=== PATIENT | female | born 1970 | race Caucasian/White ===

== ENCOUNTER 2017-06-19 12:52 | Inpatient (IN) | payer SELFPAY ==
[~2017-06-19] VITALS: Ht 162.6 cm; Wt 77.3 kg
[~2017-06-19 12:52] MED LIST: DICLEGIS DR 101 EACH PO; PRENATAL1 EACH PO; ZOFRAN4 MG PO
[2017-06-19 14:04] LABS: HEMATOCRIT 30.2 % (36.0-46.0); HEMOGLOBIN 8.7 G/DL (11.9-15.5); MCH 20.1 PG (29.0-34.0); MCHC 28.8 G/DL (30.0-36.0); MCV 69.7 FL (83-99); PLATELET COUNT 411 K/uL (156-360); RBC DIS.WIDTH-SD 47.2 % (39-53); RED BLOOD COUNT 4.33 M/uL (3.80-5.20); WHITE BLOOD COUNT 10.1 K/uL (4.1-10.2)
[2017-06-19 14:06] LABS: INTER. NORMALIZED RATIO 1.2
[2017-06-19 14:09] LABS: ALBUMIN 3.7 g/dL (3.2-4.8); CHLORIDE 108 mEq/L (99-109); PTT 27.1 SEC (25-37); SODIUM 139 mEq/L (136-147)
[2017-06-19 14:11] LABS: GLUCOSE 126 mg/dL (70-99)
[2017-06-19 14:12] LABS: TOTAL PROTEIN 6.9 g/dL (6.4-8.3)
[2017-06-19 14:13] LABS: TOTAL BILIRUBIN 0.1 mg/dL (0.0-1.0)
[2017-06-19 14:15] LABS: ALKALINE PHOSPHATASE 81 IU/L (3-129); CREATININE 0.8 mg/dL (0.6-1.3); GFR ESTIMATE (CALCULATED) > 59 mL/min/
[2017-06-19 14:16] LABS: UREA NITROGEN (BUN) 9 mg/dL (9-23)
[2017-06-19 14:17] LABS: AST (GOT) 16 IU/L (2-34)
[2017-06-19 14:18] LABS: ALT (GPT) 22 IU/L (3-49)
[2017-06-19 14:21] LABS: TROP-I INTERPRETATION NEGATIVE; TROPONIN-I < 0.01 ng/mL (0.0-0.30)
[2017-06-19] MEDS ORDERED: PRENATAL GUMMIES PO (16:14)
[2017-06-19 17:59] VITALS: BP 131/96
[2017-06-19 18:18] VITALS: BP 131/96
[2017-06-19 19:55] VITALS: BP 140/79
[2017-06-19 23:45] VITALS: BP 123/58
[2017-06-20 03:55] VITALS: BP 109/61
[2017-06-20 04:21] LABS: HEMATOCRIT 29.4 % (36.0-46.0); HEMOGLOBIN 8.4 G/DL (11.9-15.5); MCH 19.8 PG (29.0-34.0); MCHC 28.6 G/DL (30.0-36.0); MCV 69.3 FL (83-99); PLATELET COUNT 414 K/uL (156-360); RBC DIS.WIDTH-SD 47.8 % (39-53); RED BLOOD COUNT 4.24 M/uL (3.80-5.20); WHITE BLOOD COUNT 10.8 K/uL (4.1-10.2)
[2017-06-20 04:49] LABS: IRON 90 MCG/DL (35-150); TRANSFERRIN (TIBC) 284.4 mg/dL (215-380); TRANSFERRIN SATUR. 32 % (20-55)
[2017-06-20 08:21] LABS: FOLIC ACID (FOLATE) 19.8 NG/ML (5.0-22.0)
[2017-06-20 08:30] LABS: THYROTROPIN (TSH) 2.1 MIU/L (0.4-5.5)
[2017-06-20 08:33] VITALS: BP 110/61
[2017-06-20 11:13] VITALS: BP 134/77
[2017-06-20 15:51] VITALS: BP 130/80
[2017-06-20 19:45] VITALS: BP 162/84
[2017-06-20 23:16] VITALS: BP 156/78
[2017-06-21 03:11] VITALS: BP 117/56
[2017-06-21 07:01] LABS: HEMATOCRIT 30.9 % (36.0-46.0); HEMOGLOBIN 8.6 G/DL (11.9-15.5); MCH 19.4 PG (29.0-34.0); MCHC 27.8 G/DL (30.0-36.0); MCV 69.6 FL (83-99); PLATELET COUNT 404 K/uL (156-360); RBC DIS.WIDTH-SD 46.5 % (39-53); RED BLOOD COUNT 4.44 M/uL (3.80-5.20); WHITE BLOOD COUNT 9.3 K/uL (4.1-10.2)
[2017-06-21] MEDS ORDERED: IBUPROFEN400 MG PO (07:05)
[2017-06-21] MEDS ORDERED: ELIQUIS5 MG PO (07:05)
[2017-06-21 07:12] VITALS: BP 105/61
[2017-06-21 07:15] VITALS: BP 159/75
== END 2017-06-21 15:05 | disposition home or self-care (01) | DRG 176 ==
LOC: EME 12:52 → EDOF 15:40 → ENRESERV 15:46 → 2EAST 18:14 → ENPENDDIS 06-21 14:44 → 2EAST 06-21 15:05
PROVIDERS: Emergency Medicine; Internal Medicine
DX: I26.99 Other pulmonary embolism without acute cor pulmonale (principal); D50.9 Iron deficiency anemia, unspecified; J98.11 Atelectasis; J90 Pleural effusion, not elsewhere classified; E04.1 Nontoxic single thyroid nodule; K80.20 Calculus of gallbladder without cholecystitis without obstruction; Z86.32 Personal history of gestational diabetes
CPT/HCPCS: 71046; 71275; 80053; 82607; 82746; 83540; 84443; 84466; 84484; 85027; 85610; 85730; 93005; 93306; 93970; 99281; 99285